=== PATIENT | male | born 1970 | race Caucasian/White ===

== ENCOUNTER 2017-11-30 21:42 | Emergency (ER) | payer BC ==
[~2017-11-30] VITALS: Ht 185.4 cm; Wt 98.9 kg
[~2017-11-30 21:42] MED LIST: AMOXICILLIN 50500 MG PO; PREDNISONE 10 M10 M1 PO; XANAX 0.5 MG0.5 M1 PO
[2017-11-30] MEDS ORDERED: ENOXAPARIN150 MG/11 (21:50)
[2017-11-30 22:42] LABS: ABSOLUTE BASOPHILS 0.2 thou/uL (0.0-0.2); ABSOLUTE EOSINOPHILS 0.4 thou/uL (0.0-0.7); ABSOLUTE LYMPHOCYTES 1.1 thou/uL (0.8-5.3); ABSOLUTE MONOCYTES 0.8 thou/uL (0.0-1.2); BASOPHILS 2.9 %; EOSINOPHILS 4.8 %; HEMATOCRIT 40.6 % (42.0-52.0); HEMOGLOBIN 14.1 gm/dL (14.0-18.0); LYMPHOCYTES 15.1 %; MCH 30.6 pg (26.0-34.0); MCHC 34.7 g/dL (28.0-37.0); MCV 88.3 fL (80.0-100.0); MPV 10.2 fl. (7.2-11.1); NUCLEATED RBCS 0 /100WBC; PLATELET COUNT* 140 thou/uL (150-400); POLYS 66.2 %; RDW-CV 15.5 % (10.5-14.5); WBC 7.5 thou/uL (4.0-11.0)
[2017-11-30 22:47] LABS: CALCIUM 6.4 mg/dL (8.5-10.1); CREATININE 0.9 mg/dL (0.6-1.3)
[2017-11-30 22:49] LABS: POTASSIUM 2.8 mmol/L (3.5-5.1)
[2017-11-30 22:51] LABS: ALBUMIN 3.1 g/dL (3.4-5.0); TOTAL BILIRUBIN 0.6 mg/dL (<0.1-1.0); TOTAL PROTEIN 6.2 g/dL (6.4-8.2)
[2017-11-30 22:54] LABS: MAGNESIUM 0.5 mg/dL (1.8-2.4)
[2017-12-01] MEDS ORDERED: MAGNESIUM400 MG PO (01:17)
[2017-12-01] MEDS ORDERED: KLOR-CON 1010 MEQ PO (01:18)
[2017-12-01 01:22] VITALS: BP 108/56
--- NOTE | 2017-12-02 17:29 | EKG ---
[place] [address] ELECTROCARDIOGRAM REPORT Name: MARIA LUZ SHORE Room: [facility]#: [id number] Admission: 11/30/17 Attend Phys: Discharge: 12/01/17 Date of : 70 Report #: [id number] THIS REPORT FOR: //name// [facility] ED Test Date: 2017-11-30 Test Time: 22:05:35 Pat Name: MARIA LUZ SHORE Department: Room: Gender: M [employer]: KASI : 1970 Requested By: Daksha Ledezma Order Number: [id number] MD: Ross Lewis Measurements Intervals [place] Rate: 80 P: 33 DE: 119 QRS: 89 QRSD: 107 T: 55 QT: 403 QTc: 465 Interpretive Statements Sinus rhythm Borderline short DE interval Compared to ECG 07/28/2014 16:48:47 No significant changes Electronically Signed On 12-02-2017 17:29:12 CDT by Ross Lewis [email or web address] <ELECTRONICALLY SIGNED> By: Ross Lewis MD, [facility] 12/02/17 1729 04 04 Ross Lewis MD, [facility] /EPI
== END 2017-12-01 01:23 | disposition home or self-care (01) ==
LOC: M.ERS 21:42
PROVIDERS: Personal Emergency Response Attendant
DX: E87.8 Other disorders of electrolyte and fluid balance, not elsewhere classified (principal); E66.9 Obesity, unspecified; Z68.28 Body mass index [BMI] 28.0-28.9, adult; Z91.040 Latex allergy status